=== PATIENT | female | born 1975 | race Two or more races ===

== ENCOUNTER 2018-09-16 12:35 | Inpatient (IN) | payer OTHER ==
[~2018-09-16] VITALS: Ht 165.1 cm; Wt 50.0 kg
[2018-09-16 18:11] VITALS: Ht 165.1 cm; Wt 50.0 kg
[2018-09-16 18:36] VITALS: BP 116/76; RESP 18
[2018-09-16] MEDS: SOD CHLORIDE 0.9% 1,000 ML IV SCH (19:52)
[2018-09-16 20:00] VITALS: BP 105/67; PULSE 66; PULSE 85; RESP 18
--- NOTE | 2018-09-16 23:29 | HP ---
Date/Time of Note Date/Time of Note DATE: 09/16/18 TIME: 23:24 Assessment/Plan VTE Prophylaxis SCD applied (from Ns): Yes SCD contraindicated: other Pharmacological prophylaxis: other Pharm contraindication: other Lines/Catheters Urinary Cath still in place: No Assessment/Plan Hospital Course WEAKNESS DEHYDRATION ETOH USE DOUBT SYNCOPE ANXIETY PLAN IV FLUID CK TSH LABS ECHO Results 24hrs Laboratory Tests Test 09/16/18 19:37 Troponin I < 0.012 HPI/ROS Admit Date/Time Admit Date/Time Sep 16, 2018 at 17:48 Hx of Present Illness c/o dizziness weakness had some alcohol few days ago and exercising a lot no cp ROS Constitutional: No chills, No febrile, No nausea, No weight change Eyes: no complaints ENT: no complaints Respiratory: no complaints Cardiovascular: no complaints Gastrointestinal: no complaints, decreased appetite, diarrhea Genitourinary: no complaints Musculoskeletal: no complaints Skin: no complaints Neurologic: no complaints Endocrine: no complaints Lymphatic: no complaints Psychological: no complaints Immunologic: no complaints PMH/Family/Social Past Medical History Medical History: no pertinent history Medications Current Medications Sodium Chloride 1,000 ml @ 100 mls/hr Q10H IV Last administered on 09/16/18at 19:52; Admin Dose 100 MLS/HR; Start 09/16/18 at 19:30 Pantoprazole (Protonix Tab) 40 mg DAILY@06 PO ; Start 09/17/18 at 06:00 Aspirin (Halfprin) 81 mg DAILY PO ; Start 09/17/18 at 09:00 Coded Allergies: No Known Allergies (Verified Allergy, Unknown, 09/16/18) Past Surgical History Past Surgical Hx: noncontributory Family History Significant Family History: no pertinent family hx Social History Alcohol Use: occasionally Smoking Status: Never smoker Exam/Review of Systems Vital Signs Vitals Vital Signs Date Temp Pulse Resp B/P (MAP) Pulse Ox O2 O2 Flow FiO2 Time Delivery Rate 09/16/18 97.8 66 18 105/67 96 20:00 (80) Exam Constitutional: alert, oriented, well developed Psych: no complaints, nl mood/affect Head: normocephalic, atraumatic Eyes: nl conjunctiva, EOMI, nl lids, nl sclera, PERRL ENMT: nl external ears & nose, nl lips & teeth, nl nasal mucosa & septum Neck: supple, non-tender Respiratory: clear to auscultation, normal air movement Cardiovascular: regular rate and rhythm, nl pulses Gastrointestinal: soft, nl liver, spleen, non-tender Extremities: normal pulses Neurological: [facility] II-XII intact, nl mental status, nl speech, nl strength Skin: nl turgor; No rash or lesions Lymph: nl lymph nodes AMANDA JARA MD Sep 16, 2018 23:29
[2018-09-16] MEDS ORDERED: NACL 0.9% 3 ML SYG IV SCH (23:30)
[2018-09-16] MEDS ORDERED: ZOLPIDEM 5 MG TAB PO PRN (23:30)
[2018-09-16] MEDS ORDERED: ACETAMINOPHEN 325 MG TAB PO PRN (23:30)
[2018-09-16] MEDS ORDERED: ONDANSETRON 4 MG INJ IV PRN (23:30)
[2018-09-17] VITALS (8 sets, daily range): BP systolic 90–125; BP diastolic 60–83; PULSE 60–83; RESP 14–19
[2018-09-17] MEDS ORDERED: LOPERAMIDE 2 MG CAP PO PRN
[2018-09-17] MEDS ORDERED: LORAZEPAM 1 MG TAB PO PRN
[2018-09-17] MEDS: TETRAHYDROZOLINE 0.05% 15 ML OPH BOTH EYES PRN ×2 (00:23→05:20)
[2018-09-17] MEDS: SOD CHLORIDE 0.9% 1,000 ML IV SCH ×2 (05:20→15:30)
[2018-09-17] MEDS ORDERED: PANTOPRAZOLE 40 MG INJ IV SCH (06:00)
[2018-09-17] MEDS ORDERED: PANTOPRAZOLE (EC) 40 MG TAB PO SCH (06:00)
[2018-09-17] MEDS ORDERED: ASPIRIN (EC) 81 MG TAB PO SCH (09:00)
--- NOTE | 2018-09-17 15:04 | PDOCDIS ---
Discharge Instructions CONDITION [id number] Patient Condition: [id number] Stable HOME CARE INSTRUCTIONS: [id number] Diet Instructions: [id number] Regular ACTIVITY: [id number] Activity Restrictions: Strnu9t Slowly Increase Activity FOLLOW UP/APPOINTMENTS Follow-up Plan f/u own pcp 1 wk AMANDA JARA MD Sep 17, 2018 15:04
[2018-09-17] MEDS ORDERED: LOPE-123 PO (15:06)
[2018-09-17] MEDS ORDERED: LORA-441 PO (15:06)
[2018-09-17] MEDS ORDERED: PANT20TA2 PO (15:06)
[2018-09-17] MEDS ORDERED: TETRAHYDROZOLINE 0.05% BOTH EYES (15:06)
--- NOTE | 2018-09-17 16:12 | QN ---
Documentation Comment [id number] AMANDA JARA MD Sep 17, 2018 16:12
--- NOTE | 2018-09-17 19:12 | RADRPT ---
Echocardiogram Report Patient Name: PARI PEPEPatient ID: [id number] : 1975 (43y 5m)Study Date: 09/17/2018 8:03:05 AM Gender: FAccession #: [id number] Tech: EDWAR Kat [facility] Location: [id number] Ref.Physician: AMANDA JARA Height(Cm): BSA: Weight(Kg): Quality: AdequateAccount #: Procedures: Echocardiographic Report: Transthoracic echocardiogram with complete 2D, M-Mode, and doppler examination. Indications: Syncope. Measurements: 2D/M Mode Doppler Measurement Value Normal Range Measurement Value Normal Range LVIDd 2D 3.2 [ 3.8 - 5.2 ] cm AV Peak Phill 1.2 [ 100.0 - 170.0 ] cm/se c LVIDs 2D 2.3 [ 2.2 - 3.5 ] cm AV Peak PG 6.0 [ 2.0 - 9.0 ] mmHg LVPWd 2D 0.7 [ 0.6 - 0.9 ] cm LVOT Peak Phill 0.9 [ 70.0 - 110.0 ] cm/sec IVSd 2D 0.5 [ 0.6 - 0.9 ] cm LVOT Peak PG 3.0 [ 2.0 - 6.0 ] mmHg AoR Diam 2D 2.3 [ 2.3 - 3.1 ] cm MV E Peak Phill 0.8 [ 60.0 - 130.0 ] cm/sec EDV 2D 41.0 [ 46.0 - 106.0 ] ml MV A Peak Phill 0.7 [ 100.0 - 120.0 ] cm/se c ESV 2D 17.1 [ 14.0 - 42.0 ] ml MV E/A 1.2 [ 0.8 - 1.5 ] ratio EF 2D 58.3 [ 54.0 - 74.0 ] percent MV PHT 45.0 [ 20.0 - 100.0 ] msec LA Dimen 2D 2.2 [ 2.7 - 3.8 ] cm MV Decel Time 155 [ 104 - 258 ] msec MV Decel Baker 5 Lat E` Phill 0.1 [ 10.0 - 15.0 ] cm/sec Lateral E/E` 6.3 [ 1.0 - 2.0 ] ratio Med E` Phill 0.1 cm/sec MV E/A 1.2 [ 0.8 - 1.5 ] ratio MVA PHT 4.9 [ 2.0 - 4.0 ] cm2 TR Peak Phill 2.1 [ 100.0 - 280.0 ] cm/se c TR Peak PG 18.0 mmHg RVSP 18.0 [ 10.0 - 36.0 ] mmHg RA Pressure 3.0 mmHg Findings: Left Ventricle: Normal left ventricular systolic function. Normal left ventricular cavity size. Normal left ventricular wall thickness. Ejection fraction is visually estimated at 55-60 %. Right Ventricle: Normal right ventricular size. Normal right ventricular systolic function. Left Atrium: The left atrium is normal in size. Right Atrium: The right atrium is normal in size. Atrial Septum: Normal atrial septum. Ventricular septum: Normal/intact ventricular septum. Mitral Valve: Normal appearance of the mitral valve. Trace mitral regurgitation. Aortic Valve: Normal appearance of the aortic valve. No aortic regurgitation. Tricuspid Valve: Normal appearance of the tricuspid valve. Estimated peak PA systolic pressure 21 mmHg. There is mild tricuspid regurgitation. Pulmonic Valve: Normal pulmonic valve appearance. No evidence of pulmonic regurgitation. Pericardium: Normal pericardium with no significant pericardial effusion. Aorta: Normal aortic root. IVC: Normal size and normal respiratory collapse consistent with normal right atrial pressure. Conclusions: Normal left ventricular systolic function. Normal left ventricular cavity size. Normal left ventricular wall thickness. Ejection fraction is visually estimated at 55-60 %. Normal appearance of the mitral valve. Trace mitral regurgitation. Normal appearance of the tricuspid valve. Estimated peak PA systolic pressure 21 mmHg. There is mild tricuspid regurgitation. Electronically Signed By: Jaswinder Arevalo 2018-09-17 19:12:31 PDT
--- NOTE | 2018-09-17 21:41 | DS ---
DATE OF ADMISSION: 09/16/2018 DATE OF DISCHARGE: 09/17/2018 HOSPITAL COURSE: The patient is a 42-year-old female with no significant past medical history who wa s admitted with anxiety, dehydration and the patient had some drinks a few days ago before going to [facility] and the patient felt better with some antidiuretic medication and IV fluid. The patient had diarrhea which is resolving. Denies any fever and chills. The patient's carotid duplex scan was negative. Laboratory data, sodium 140, potassium 3.9 and patient also has TSH 2.510. The patient w ill be discharged home. DISCHARGE DIAGNOSES: Anxiety, alcohol abuse, dehydration, stress. DISCHARGE MEDICATIONS: The patient to continue on Ativan and PPI. To follow with PCP as an outpatie nt. CONDITION: The patient is stable at the time of discharge. Dictated By: AMANDA JARA MD BS/NTS Conf#: [id number] DID#: [id number] CC: VILLA AMBRIZ;*End*
== END 2018-09-17 20:25 | disposition home or self-care (01) | DRG 641 ==
LOC: 6WM 17:48
PROVIDERS: ADMIT Internal Medicine; ATTEND Internal Medicine
DX: E86.0 Dehydration (principal); Z72.89 Other problems related to lifestyle; F41.9 Anxiety disorder, unspecified
CPT/HCPCS: 80053; 80061; 84443; 84484; 93306; 93880; C9113; J7030